=== PATIENT | male | born 1940 | race Caucasian/White ===

== ENCOUNTER 2017-08-21 14:50 | Emergency (ER) | payer OTHER ==
[2017-08-21] MEDS ORDERED: IPRATROPIUM/ALBUTEROL SULFATE 3 ML AMPUL.NEB NEB ONE (15:01)
[2017-08-21 15:18] LABS: BASOPHILS % 0.3 (0.0-1.5); EOSINOPHILS % 2.4 % (0.0-6.8); MEAN CORPUSCULAR HEMOGLOBIN 30.1 pg (28.0-34.0); MEAN CORPUSCULAR VOLUME 89.3 fl (80.0-100.0); MONOCYTES % 3.6 % (0.0-11.0); NEUTROPHILS # 7.8 # k/uL (1.4-7.7)
[2017-08-21] MEDS ORDERED: 0.9 % SODIUM CHLORIDE 1,000 ML IV ONE (15:30)
--- NOTE | 2017-08-21 16:07 | ED Physician Documentation ---
Dyspnea - HISTORIAN Historian: patient - HPI Stated Complaint: CP with productive cough and back pain for one week Chief Complaint: Wheezing Duration: continues in ED Severity: moderate Exacerbated By: exertion, coughing Associated Symptoms: chills, chest discomfort, productive cough. denies: fever , sweating, chest pain, bloody cough Further Comments: yes (77 year old male patient presents with complaint of SOB and cough for one week. Patient reports left lower rib discomfort, worse with deep breath. C/O dyspnea with exerction. Denies Chest pain or palpitions, c/o chills, denies fever, nause or vomiting. States his blood sugars have run over 300 for the past [address] House, who called in Actos today. Patient has not started it.) - ROS CONST: no problems EYES/ENT: none GI/: none NEURO/PSYCH: denies: headache MS/SKIN/LYMPH: none - PAST HX Lung Disease: none Cardiac Disease: other (HTN) PE Risk Factors: hypertension Surgeries/Procedures: none Other History: other (GERD, HLD, neuropathy bilateral legs) Immunizations: influenza (2017), pneumovax ("yes"), UTD Allergies/Adverse Reactions: Allergies Allergy/AdvReac Type Severity Reaction Status Date / Time No Known Allergies Allergy Verified 08/21/17 15:15 Home Medications: Ambulatory Orders Medication Instructions Recorded Fluticasone Propionate [Flonase 2 spray NS DAILY #1 bottle 07/16/14 Nasal [place]] Glimepiride [Amaryl] 4 mg PO BID 07/16/14 Lisinopril [Prinivil] 10 mg PO QD 07/16/14 Omeprazole 20 mg PO DAILY 07/16/14 Simvastatin [Zocor] 80 mg PO DAILY 07/16/14 Aspirin [Tracee] 81 mg PO D 08/21/17 Gabapentin [Gabapentin] 300 mg PO D 08/21/17 Hydrochlorothiazide 25 mg PO D 08/21/17 [Hydrochlorothiazide] Metformin HCl [Metformin HCl ER] 1,000 mg PO BID 08/21/17 - SOCIAL HX Smoking History: non-smoker - FAMILY HX Family History: denies: none - VITAL SIGNS Vital Signs: Vital Signs Temp Pulse Resp BP Pulse Ox 99.1 F 94 H 24 142/82 96 08/21/17 14:50 08/21/17 15:30 08/21/17 14:50 08/21/17 14:50 08/21/17 15:30 - REVIEWED ASSESSMENTS Nursing Assessment Reviewed: Yes Vitals Reviewed: Yes Progress - Progress Progress: Reviewed lab results with patient and . Patient continues to Sat 90-92% on 2L NC, will progress with D Dimr D Dimr >5000; Will progress with CT PE protocol after consult with radiologist regarding contrast. Per Dr Schmidt - no contrast; GFR 45 Updated patient, recommend transfer to higher level of care for further evaluation. Patient prefers [facility]. 1720 Call to [facility] for transfer [address] Araiza. Orders to start Heparin or lovenox prior to transfer. Lovenox started. Call to Mrs. Ramirez, updated on transfer. ED Results Lab/Radiology - Lab Results Lab Results: Lab Results 08/21/17 08/21/17 08/21/17 15:00 15:00 15:00 WBC RBC Hgb Hct MCV MCH MCHC RDW Plt Count Neut % (Auto) Lymph % (Auto) Jasper % (Auto) Eos % (Auto) Baso % (Auto) Neut # (Auto) Lymph # (Auto) Jasper # (Auto) Eos # (Auto) Baso # (Auto) Reactive Lymphs % Reactive Lymphs # Sodium 138 mmol/L mmol/L (136-145) Potassium 4.7 mmol/L mmol/L (3.5-5.1) Chloride 99 mmol/L mmol/L (98-107) Carbon Dioxide 25 mmol/L mmol/L (22-30) BUN 32 mg/dL H mg/dL (9-20) Creatinine 1.60 mg/dL H mg/dL (0.66-1.25) Estimated Creat Clear 61 Est GFR ( Amer) 54 L (60 - ) Est GFR (Non-Af Amer) 45 L (60 - ) Glucose 406 mg/dL H mg/dL (74-106) Lactate 2.5 U/L H U/L (0.7-2.1) Calcium 10.1 mg/dL mg/dL (8.4-10.2) Total Bilirubin 0.7 mg/dL mg/dL (0.2-1.3) AST 18 U/L U/L (15-46) ALT 24 U/L U/L (13-69) Alkaline Phosphatase 97 U/L U/L (38-126) Troponin I < 0.03 ng/mL L ng/mL (0.03-0.06) NT-Pro-B Natriuret Pep 36.2 pg/mL pg/mL (15.0-450.0) Total Protein 6.9 g/dL g/dL (6.3-8.2) Albumin 4.0 g/dL g/dL (3.5-5.0) 08/21/17 14:59 WBC 10.60 K/ul K/ul (4.00-12.00) RBC 4.51 M/ul M/ul (3.90-5.20) Hgb 13.6 g/dL g/dL (12.0-18.0) Hct 40.2 % % (37.0-53.0) MCV 89.3 fl fl (80.0-100.0) MCH 30.1 pg pg (28.0-34.0) MCHC 33.7 g/dL g/dL (30.0-36.0) RDW 13.0 % % (11.3-14.3) Plt Count 209 K/mm3 K/mm3 (130-400) Neut % (Auto) 73.4 % % (39.0-79.0) Lymph % (Auto) 19.3 % % (16.0-50.0) Jasper % (Auto) 3.6 % % (0.0-11.0) Eos % (Auto) 2.4 % % (0.0-6.8) Baso % (Auto) 0.3 (0.0-1.5) Neut # (Auto) 7.8 # k/uL H # k/uL (1.4-7.7) Lymph # (Auto) 2.0 # k/uL # k/uL (0.6-4.0) Jasper # (Auto) 0.4 # k/uL # k/uL (0.0-0.9) Eos # (Auto) 0.2 # k/uL # k/uL (0.0-0.6) Baso # (Auto) 0.0 # k/uL # k/uL (0.0-0.5) Reactive Lymphs % 1.1 % % (0.0-5.0) Reactive Lymphs # 0.1 # k/uL # k/uL (0.0-0.8) Sodium Potassium Chloride Carbon Dioxide BUN Creatinine Estimated Creat Clear Est GFR ( Amer) Est GFR (Non-Af Amer) Glucose Lactate Calcium Total Bilirubin AST ALT Alkaline Phosphatase Troponin I NT-Pro-B Natriuret Pep Total Protein Albumin - Radiology Radiology Impressions: Examination: PA and lateral chest. History: CXR, COUGH FOR A FEW MONTHS, WORSENING (Hx) Comparison exam: None provided. Findings: PA lateral chest demonstrate a normal cardiac and mediastinal silhouette. Vascular calcifications involving the aortic arch. Mild tortuosity. No focal infiltrate. No blunting of the costophrenic margins. Articular degenerative changes. Impression: No acute appearing pulmonary process. Electronically signed on Aug 21, 2017 4:02:40 PM PATENT CHEMIST by: Jonatan Schmidt - Orders Orders: ED Orders Category Date Time Status Continuous EKG monitoring Q30M Care 08/21/17 15:00 Active Continuous Pulse Oximetry Q30M Care 08/21/17 15:[address] IV Lock 1T Care 08/21/17 15:00 Active CHEST 2VIEW [RAD] Stat Exams 08/21/17 15:00 Ordered BNP [NT-proBNP] Stat Lab 08/21/17 15:00 Completed CBC/PLATELET/DIFF Stat Lab 08/21/17 14:59 Completed CMP Stat Lab 08/21/17 15:00 Completed LACTATE Stat Lab 08/21/17 15:00 Completed TROPONIN I (cTnI) Stat Lab 08/21/17 15:00 Completed UA W/MICRO IF INDICATED Stat Lab 08/21/17 15:00 Ordered 0.9 % Sodium Chloride [Normal Saline] 1,000 ml Med 08/21/17 15:30 Discontinued IV NOW Ipratropium/Albuterol Sulfate [Duoneb] Med 08/21/17 15:01 Discontinued 3 ml NEB .STK-MED ONE Oxygen Daily Oxygen 08/21/17 15:00 Ordered EKG WITH COMPARISON Stat Ther 08/21/17 15:00 Ordered Dyspnea Physical Exam - EXAM General Appearance: mild distress (mild dyspnea with exerction; ) EENT: eye inspection normal, ENT inspection normal, pharynx normal, no signs of dehydration, MARIEL, no nystagmus, TM's nml Respiratory: no resp. distress, no pain on inspiration, speaks full sentences, decreased air movement (bilateral bases), other (RA Sat 87-88%; tenderness left lateral chest wall with palpation. ) CVS: reg. rate & rhythm (HR 90-95), no murmur, no gallop, no friction rub, pulses full, pulses equal Abdomen: non-tender, no organomegaly, no distention, no ascites Skin: color nml, no rash, warm, nml palp., dry Extremities: non-tender, normal range of motion, no evidence of injury, no edema , other (Bilateral neuropathy - bilateral patient states "hurts a little"; calves measure 16 cm bilaterally) Neuro/Psych: oriented x3, CN's nml as tested, motor nml, sensation nml, mood/ affect nml Discharge Clincal Impression: Hyperglycemia due to type 2 diabetes mellitus, Elevated d-dimer, Renal insufficiency, Elevated lactic acid level Condition: Fair Disposition: 02 XFER [facility] HOSP Decision to Admit: NO Decision Time: 18:02
[2017-08-21] MEDS ORDERED: ENOXAPARIN SODIUM 100 MG/ML DISP.SYRIN SQ ONE (17:35)
[2017-08-21] MEDS ORDERED: INSULIN REGULAR, HUMAN 100 UNIT/ML 3ML VIAL SQ ONE (18:03)
[2017-08-21 19:09] VITALS: BP 134/76
--- NOTE | 2017-08-21 19:27 | Diagnostic Imaging Report ---
DEISY WANG (PREPARER MAKING DEPARTMENT) - ER [facility] [address] [id number] Report Submission Date: Aug 21, 2017 4:02:40 PM COMBATANT DIVER QUALIFIED Patient Study Name: KASHIF CORTES Date: Aug 21, 2017 3:29:48 PM COMBATANT DIVER QUALIFIED Modality Type: DX Gender: M Description: CHEST : 36 Institution: [facility] Physician: DEISY WANG (PREPARER MAKING DEPARTMENT) - ER Examination: PA and lateral chest. History: CXR, COUGH FOR A FEW MONTHS, WORSENING (Hx) Comparison exam: None provided. Findings: PA lateral chest demonstrate a normal cardiac and mediastinal silhouette. Vascular calcifications involving the aortic arch. Mild tortuosity. No focal infiltrate. No blunting of the costophrenic margins. Articular degenerative changes. Impression: No acute appearing pulmonary process. Electronically signed on Aug 21, 2017 4:02:40 PM COMBATANT DIVER QUALIFIED by: Jonatan PATEL
[2017-08-22 05:42] LABS: APPEARANCE,URINE CLEAR (CLEAR); COLOR,URINE YELLOW (YELLOW); OCCULT BLOOD,URINE NEGATIVE (NEGATIVE); PH URINE 5.5 (5.0 - 8.0); UROBILINOGEN URINE 0.2 Eu (0.2-1.0)
== END 2017-08-21 18:45 | disposition short-term general hospital (02) ==
LOC: ED 14:50
DX: R07.9 Chest pain, unspecified (principal); E11.65 Type 2 diabetes mellitus with hyperglycemia; N28.9 Disorder of kidney and ureter, unspecified; R74.0 Nonspecific elevation of levels of transaminase and lactic acid dehydrogenase [LDH]; I10 Essential (primary) hypertension; R05 Cough
CPT/HCPCS: 71046; 80053; 81002; 83605; 83880; 84484; 85025; 85379; 87040; 93005; J1650; J7030; 94640; 96365; 96366; 96372; 99284; S1016

== ENCOUNTER 2017-12-10 08:22 | Outpatient (CLI) | payer OTHER | END 2017-12-10 08:23 | LOC: POD 08:22 | PROVIDERS: ATTEND Podiatrist Public Medicine | DX: B35.1 Tinea unguium (principal); E11.9 Type 2 diabetes mellitus without complications; M79.674 Pain in right toe(s); M79.675 Pain in left toe(s) | CPT/HCPCS: 11721; G0463 ==